=== PATIENT | male | born 1975 | race Caucasian/White ===

== ENCOUNTER → 2021-10-08 | Outpatient (CLI) | payer MEDICAID | END | disposition home or self-care (01) | LOC: MRI 09:05 | PROVIDERS: ATTEND Nurse Practitioner Family | DX: M50.123 Cervical disc disorder at C6-C7 level with radiculopathy (principal); M50.222 Other cervical disc displacement at C5-C6 level; M50.221 Other cervical disc displacement at C4-C5 level; G62.9 Polyneuropathy, unspecified; R20.2 Paresthesia of skin; M62.838 Other muscle spasm; M48.02 Spinal stenosis, cervical region ==

== ENCOUNTER → 2022-01-29 | Outpatient (CLI) | payer MEDICAID | LOC: MRI 01-11 14:00 | PROVIDERS: ATTEND Nurse Practitioner Family | DX: M62.81 Muscle weakness (generalized) (principal); R29.898 Other symptoms and signs involving the musculoskeletal system ==

== ENCOUNTER → 2023-01-27 | Outpatient (CLI) | payer MEDICAID ==
[2023-01-27 11:00] LABS: BASO # 0.1 10*3/uL (0.0-0.1); BASO % 0.8 % (0.0-1.0); EOS # 0.2 10*3/uL (0.0-0.4); EOS % 2.3 % (1.0-4.0); HEMATOCRIT 45.7 % (42.0-52.0); LYMPH # 3.7 10*3/uL (1.3-4.4); LYMPH % 38.3 % (27.0-41.0); MEAN CELL VOLUME 91.4 fl (80.0-94.0); MEAN CORPUSCULAR HGB 30.6 pg (27.0-31.0); MEAN CORPUSCULAR HGB CONC 33.5 g/dl (33.0-37.0); MEAN PLATELET VOLUME 9.5 fl (9.6-12.3); MONO # 0.8 10*3/uL (0.1-1.0); MONO % 8.4 % (3.0-9.0); NEUT # 4.8 10*3/uL (2.3-7.9); NEUT % 49.9 % (47.0-73.0); PLATELET COUNT AUTOMATED 358 10*3/uL (130-400); WHITE BLOOD COUNT 9.7 10*3/uL (4.8-10.8)
[2023-01-27 11:21] LABS: ALKALINE PHOSPHATASE 86 U/L (46-116); BUN 9 mg/dl (9-23); CHLORIDE 106 mmol/L (98-107); CHOLESTEROL 216 mg/dL (<200); LDL CHOLESTEROL 150 mg/dL (9-159); POTASSIUM 4.1 mmol/L (3.4-5.1); SGPT/ALT 27 U/L (10-49); TOTAL PROTEIN 7.7 gm/dL (6.0-8.0); TRIGLYCERIDES 174 mg/dl (<150)
== END | disposition home or self-care (01) ==
LOC: LAB 10:23
PROVIDERS: ATTEND Nurse Practitioner Family
DX: E78.2 Mixed hyperlipidemia (principal); R07.9 Chest pain, unspecified; R20.2 Paresthesia of skin; G62.9 Polyneuropathy, unspecified; R29.898 Other symptoms and signs involving the musculoskeletal system; R56.9 Unspecified convulsions; E53.8 Deficiency of other specified B group vitamins; R07.89 Other chest pain

== ENCOUNTER 2024-09-29 20:14 | Emergency (ER) | payer MEDICAID | END 2024-09-29 21:42 | disposition left against medical advice (07) | LOC: ED 20:14 | DX: R07.0 Pain in throat (principal); R06.02 Shortness of breath; Z88.0 Allergy status to penicillin; Z53.29 Procedure and treatment not carried out because of patient's decision for other reasons; Y04.2XXA Assault by strike against or bumped into by another person, initial encounter; Y93.89 Activity, other specified; Y92.89 Other specified places as the place of occurrence of the external cause; Y99.8 Other external cause status ==